=== PATIENT | male | born 1950 | race Caucasian/White ===

== ENCOUNTER 2016-10-30 17:00 | Emergency (ER) | payer MEDICARE, OTHER ==
[2016-10-30] MEDS ORDERED: Sodium Chloride 0.9% 10 ML Syringe FLUSH PRN (17:25)
[2016-10-30] MEDS ORDERED: ceFAZolin 1 GM Vial IVPUSH ONE (17:26)
[2016-10-30] MEDS ORDERED: HYDROmorphone 1 MG/ML Syringe IVPUSH ONE (17:26)
[2016-10-30] MEDS ORDERED: Diphtheria,Pertussis(Acell),Tetanus Vaccine 0.5 ML Syringe IM ONE (17:26)
[2016-10-30 18:26] VITALS: BP 159/82
--- NOTE | 2016-10-31 09:17 | ER ---
Date of Service: 10/30/2016 SUBJECTIVE: Carrillo presents to the emergency room with complaints of injury to the middle finger of the right hand. He states that he got his finger stuck or caught in a wood roadway technician and has a partial amputation at the distal interphalangeal joint. The patient states that his tetanus needs to be updated and he is unsure when his tetanus was last updated. He states that he is experiencing some paresthesia in the distal portion of the extremity. He states that he did not sustain any injury other than was isolated rather than to the above named digit. PAST MEDICAL HISTORY: 1. Chronic constipation. 2. Hyperlipidemia. 3. Hypertension. 4. Chronic diarrhea. 5. Peripheral neuropathy. 6. Iron deficiency. MEDICATIONS: 1. Amlodipine. 2. Potassium chloride. 3. Multivitamin. 4. Imodium A-D. 5. Hydrochlorothiazide. 6. Enalapril. 7. Lomotil. 8. Aspirin. REVIEW OF SYSTEMS: General: Denies any injury other than was isolated to the middle finger of the right hand. Does complain of some paresthesia to the distal tip of the finger. He states that this happened just prior to coming to the emergency room. PHYSICAL EXAMINATION: General: A 66-year-old male patient, who is in no acute distress. Vital Signs: Initial blood pressure was 162/95, respiratory rate is 20, O2 saturations 99%, temperature is 35.0, and pulse rate is 75. Skin: Warm, pink, and dry. Lungs: Clear to auscultation. Heart: Regular rate and rhythm. Musculoskeletal: He does have a severe laceration extending through the lateral aspect of the distal interphalangeal joint subsequently resulting in a detachment of the lateral aspect of the distal and middle phalanx. There is a collateral ligament visible on examination. There is also extensor tendon visible and noted to be lacerated as well. There is no active bleeding noted. Remainder of his physical examination is within normal limits. DIAGNOSTIC DATA: Radiographs to the third digit of the patient's right hand revealed no obvious gross bony injury, but the distal phalanx was noticed to be subluxed medially. There was obvious detachment of the lateral aspect of the distal phalanx. EMERGENCY ROOM COURSE: IV access was established. The patient was given a gram of Ancef IV. His tetanus was updated. He was given 1 mg of Dilaudid IV. A Telfa was placed on the patient's finger and was held in place with Isael and Sheryl. The patient tolerated this well. He remained stable under my care in the emergency room. ASSESSMENT: Partial amputation/severe laceration to the distal phalanx of the right hand. PLAN: The patient will be discharged. I did speak with Dr. Wong, the hand surgeon on-call at [facility] in [place]. The patient will be transported by private vehicle. His saline lock was kept in place. Dr. Wong stated that he should not eat or drink after being discharged as they will be doing the surgery once he arrives at the [place]. He is to go to [place] [facility]. All questions were answered. MWK: 10/30/2016 19:01:12 MODL: 10/30/2016 19:51:30 /[id number]
== END 2016-10-30 18:40 | disposition short-term general hospital (02) ==
LOC: VM.ED 17:00
DX: S68.122A Partial traumatic metacarpophalangeal amputation of right middle finger, initial encounter (principal); S61.212A Laceration without foreign body of right middle finger without damage to nail, initial encounter; I10 Essential (primary) hypertension; E78.5 Hyperlipidemia, unspecified; Z23 Encounter for immunization; W23.0XXA Caught, crushed, jammed, or pinched between moving objects, initial encounter
CPT/HCPCS: 73140; 90471; 90715; 96374; 96375; 99284; J0690; J1170; J7050

== ENCOUNTER 2021-04-15 09:58 | Day surgery (SDC) | payer MEDICARE, OTHER ==
[~2021-04-15 09:58] MED LIST: Lactated Ringers 1,000 ML IV SCH; Sodium Chloride 0.9% 10 ML Syringe FLUSH PRN
[2021-04-15] MEDS ORDERED: Propofol 200 MG/20 ML SDV ONE ×2 (10:57→11:59)
[2021-04-15] MEDS ORDERED: fentaNYL 100 MCG/2 ML SDV ONE (10:57)
[2021-04-15 13:05] VITALS: BP 132/84; PULSE 60
== END 2021-04-15 13:30 | disposition home or self-care (01) ==
LOC: VM.SDS 09:58
PROVIDERS: ATTEND Family Medicine
DX: Z12.11 Encounter for screening for malignant neoplasm of colon (principal); D12.8 Benign neoplasm of rectum; K57.30 Diverticulosis of large intestine without perforation or abscess without bleeding; I10 Essential (primary) hypertension; K52.9 Noninfective gastroenteritis and colitis, unspecified; E78.00 Pure hypercholesterolemia, unspecified; Z79.899 Other long term (current) drug therapy; Z79.82 Long term (current) use of aspirin; Z80.0 Family history of malignant neoplasm of digestive organs; Z85.048 Personal history of other malignant neoplasm of rectum, rectosigmoid junction, and anus; Z98.0 Intestinal bypass and anastomosis status; Z90.49 Acquired absence of other specified parts of digestive tract; Z98.890 Other specified postprocedural states; Z87.891 Personal history of nicotine dependence
CPT/HCPCS: 00812; 88305; J2704; J3010; J7120

== ENCOUNTER 2024-01-25 10:29 | Day surgery (SDC) | payer OTHER, MEDICARE ==
[~2024-01-25 10:29] MED LIST changes: -Sodium Chloride 0.9% 10 ML Syringe FLUSH PRN
[2024-01-25] MEDS ORDERED: Propofol 200 MG/20 ML SDV ONE ×2 (12:42→14:44)
[2024-01-25] MEDS ORDERED: fentaNYL 100 MCG/2 ML SDV ONE (12:42)
[2024-01-26 11:48] VITALS: BP 128/70; PULSE 70
== END 2024-01-25 17:00 | disposition home or self-care (01) ==
LOC: VM.SDS 10:29
PROVIDERS: ATTEND Family Medicine
DX: D12.6 Benign neoplasm of colon, unspecified (principal); K57.30 Diverticulosis of large intestine without perforation or abscess without bleeding; I10 Essential (primary) hypertension
CPT/HCPCS: 00811; 99100; J2704; J3010